=== PATIENT | female | born 1980 ===

== ENCOUNTER 2018-09-01 | Emergency (ER) | payer OTHER ==
[2018-09-01] VITALS: BMI 24.7
[2018-09-01 00:08] VITALS: BP 126/81; PULSE 78; RESP 16; TEMP 98.9; O2SAT 98
--- NOTE | 2018-09-01 00:36 | C.PDOC ---
History Of Present Illness 37 year old female presents to the ED c/o chills and left cheek pain. Patient reports taking Tylenol at home. Patient denies fever, facial swelling, headache, neck pain, rash, sore throat. Time Seen by Provider: 09/01/18 00:11 Chief Complaint (Nursing): Medical Clearance History Per: Patient History/Exam Limitations: no limitations Onset/Duration Of Symptoms: Days Current Symptoms Are (Timing): Still Present Recent travel outside of the [place]: No Additional History Per: Patient Past Medical History Reviewed: Historical Data, Nursing Documentation, Vital Signs Vital Signs: Last Vital Signs Temp 98.9 F 09/01/18 00:05 Pulse 78 09/01/18 00:05 Resp 16 09/01/18 00:05 BP 126/81 09/01/18 00:05 Pulse Ox 98 09/01/18 00:05 - Medical History PMH: Anxiety Surgical History: No Surg Hx Family History: States: Unknown Family Hx - Social History Hx Alcohol Use: No Hx Substance Use: No - Immunization History Hx Tetanus Toxoid Vaccination: No Review Of Systems Constitutional: Positive for: Chills. Negative for: Fever ENT: Positive for: Mouth Pain. Negative for: Throat Pain, Throat Swelling Respiratory: Negative for: Cough, Shortness of Breath Gastrointestinal: Negative for: Nausea, Vomiting Musculoskeletal: Negative for: Neck Pain Neurological: Negative for: Headache Physical Exam - Physical Exam Appears: Non-toxic, No Acute Distress Skin: Normal Color, Warm, Dry Head: Atraumatic, Normacephalic Eye(s): bilateral: Normal Inspection Ear(s): Bilateral: Normal Nose: No Discharge Oral Mucosa: Moist Lips: No Swelling Teeth: Tender To Palpation (left lower 3rd molar area), Other (left lower wisdom tooth eruption) Gingiva: Swelling (left lower area), Tender (left lower ), No Abscess Throat: Normal, No Erythema, No Exudate, Other (uvula midline, airway patent) Neurological/Psych: Oriented x3, Normal Speech, Normal Cognition ED Course And Treatment O2 Sat by Pulse Oximetry: 98 (ON RA) Pulse Ox Interpretation: Normal Progress Note: Plan: - Motrin 600 mg PO. - Penicillin 500 mg PO. Patient was advised to take NSAIDs for pain management at home and to follow up with Dentist. Disposition - Disposition Disposition: HOME/ ROUTINE Disposition Time: 00:32 Condition: STABLE Additional Instructions: Follow up with Dentist within 1-2 days. Return to ED if feel worse. Prescriptions: Ibuprofen [Motrin Tab] 600 mg PO Q8 #30 tab Penicillin VK [Penicillin VK Tab] 500 mg PO Q6 #28 tab Instructions: Impacted Tooth (DC) Forms: [facility], [facility] (Spanish) - Clinical Impression Clinical Impression: Late tooth eruption - PA / [employer] / Resident Statement MD/DO has reviewed & agrees with the documentation as recorded. - Scribe Statement The provider has reviewed the documentation as recorded by the Scribe Brennen Gunn All medical record entries made by the Francisco were at my direction and personally dictated by me. I have reviewed the chart and agree that the record accurately reflects my personal performance of the history, physical exam, medical decision making, and the department course for this patient. I have also personally directed, reviewed, and agree with the discharge instructions and disposition.
== END 2018-09-01 00:51 | disposition home or self-care (01) ==
LOC: C.ER
DX: K00.6 Disturbances in tooth eruption (principal)